=== PATIENT | female | born 1975 ===

== ENCOUNTER 2017-08-16 03:08 | Emergency (ER) | payer SELFPAY ==
[2017-08-16 03:25] VITALS: BP 137/86; PULSE 98; RESP 18; TEMP 98.4; O2SAT 99
--- NOTE | 2017-08-16 04:41 | ED PDOC ---
HPI: CCC, URI, Sore Throat <Sultan Umer - Last Filed: 08/16/17 06:18> <Suman Graham - Last Filed: 08/16/17 06:42> Time Seen by Provider: 08/16/17 03:42 Chief Complaint (Nursing): ENT Problem Additional Complaint(s): 41 yo IUP at 36.2 weeks GA presents to ED c/o sore throat, subjective fever and B/L eye discharge x 3 days associated with B/L ear pain (L>R) for 2 days. Denies cough, dyspnea, chest pain, dizziness or chills. Denies ctx, vaginal bleeding, or LOF. Reports +FM. Pt did not take any pain medications. ( Sultan Umer) Supervising Attending Note - Supervising Attending Note The Documented history was done by the: Physician Chrome Polisher, Attending Physician The documented physical exam was done by the: Physician Chrome Polisher, Attending Physician The documented procedures were done by the: Physician Chrome Polisher, Attending Physician - Attestation: I have personally seen and examined this patient.: Yes I have fully participated in the care of the patient.: Yes I have reviewed all pertinent clinical information, including history, physical exam and plan: Yes <Suman Graham - Last Filed: 08/16/17 06:42> Past Medical History - Medical History PMH: No Chronic Diseases - Surgical History Surgical History: No Surg Hx - Family History Family History: States: No Known Family Hx - Social History Current smoker - smoking cessation education provided: No Alcohol: None Drugs: Denies <Sultan Umer - Last Filed: 08/16/17 06:18> Reviewed: Historical Data, Nursing Documentation, Vital Signs <Suman Graham - Last Filed: 08/16/17 06:42> Vital Signs: Last Vital Signs Temp 98.4 F 08/16/17 03:23 Pulse 98 H 08/16/17 03:23 Resp 18 08/16/17 03:23 BP 137/86 08/16/17 03:23 Pulse Ox 99 08/16/17 06:23 - Home Medications Home Medications: Ambulatory Orders Medication Instructions Recorded Amoxicillin 875 mg PO BID #20 tablet 08/16/17 Tobramycin 0.3% [Tobramycin 5 Ml] 1 drop OU Q4 #1 bottle 08/16/17 - Allergies Allergies/Adverse Reactions: Allergies Allergy/AdvReac Type Severity Reaction Status Date / Time No Known Allergies Allergy Verified 08/16/17 03:23 Review of Systems Constitutional: Negative for: Chills Eyes: Positive for: Redness ENT: Positive for: Ear Pain. Negative for: Ear Discharge Cardiovascular: Negative for: Chest Pain, Palpitations Respiratory: Negative for: Cough, Shortness of Breath Gastrointestinal: Negative for: Nausea, Vomiting Genitourinary Female: Negative for: Dysuria, Vaginal Bleeding Neurological: Negative for: Dizziness <Sultan Umer - Last Filed: 08/16/17 06:18> ROS Statement: Except As Marked, All Systems Reviewed And Found Negative <Suman Graham - Last Filed: 08/16/17 06:42> Physical Exam - Physical Exam Appears: Positive for: Uncomfortable (and mild acute distress due to ear pain) Skin: Positive for: Normal Color Eye Exam: Positive for: EOMI, PERRL, Conjunctival injection (with yellow crusting discharge B/L( R>L)) ENT: Positive for: Pharyngeal Erythema, Tonsillar Exudate (No tonsillar swelling ) Neck: Positive for: Normal Cardiovascular/Chest: Positive for: Regular Rate, Rhythm. Negative for: Murmur Respiratory: Positive for: Normal Breath Sounds. Negative for: Crackles, Wheezing Gastrointestinal/Abdominal: Positive for: Bowel Sounds, Soft, Other (gravid abdomen) Neurologic/Psych: Positive for: Alert, Oriented <Sultan Umer - Last Filed: 08/16/17 06:18> - ECG O2 Sat by Pulse Oximetry: 99 <Sultan Umer - Last Filed: 08/16/17 06:18> <Suman Graham - Last Filed: 08/16/17 06:42> - Progress ED Course And Treament: Assessment: 41 yo IUP at 36.2 weeks GA presents for sore throat, ear pain and eye discharge for 3 days. Plan: Rapid strep Rapid influenza POC finger stick glucose Acetaminophen 650 mg po once Case d/w ED attending Dr. Graham Re-evaluation time: 6:00 am on 08/16/17 Pt reports ear pain has improved after taking tylenol and afebrile in the ED. Pt's rapid strep and rapid influenza were negative. Pt is clinically stable to discharge home. Pt is prescribed amoxicillin 875 mg PO BID x 10 days for AOM and tobramycin eye drops for bacterial conjunctivitis. Advised to take tylenol 650 mg OTC q6 hrs prn for pain. Pt was advised to f/u with PMD in 2-3 days. Pt is in agreement with the plan. Case d/w ED attending Dr. Graham. (Sultan Umer) Disposition <Sultan Umer - Last Filed: 08/16/17 06:18> - Patient ED Disposition Is Patient to be Admitted: No Doctor Will See Patient In The: Office Counseled Patient/Family Regarding: Studies Performed, Diagnosis, Need For Followup - Disposition Disposition: Routine/Home Disposition Time: 06:11 <Suman Graham - Last Filed: 08/16/17 06:42> - Clinical Impression Clinical Impression: Otitis media, Conjunctivitis, Tonsillitis - Disposition [facility]errals: [facility] [Outside] Condition: GOOD Additional Instructions: Take your medications as instructed. Take only tylenol for pain or fever. Follow up with your PCP in 2-3 days. Prescriptions: Amoxicillin 875 mg PO BID #20 tablet Tobramycin 0.3% [Tobramycin 5 Ml] 1 drop OU Q4 #1 bottle Instructions: Otitis Media (ED), Tonsillitis (ED), Conjunctivitis (ED) Print Language: YI
== END 2017-08-16 06:24 | disposition home or self-care (01) ==
LOC: H.ER 03:08
DX: O26.893 Other specified pregnancy related conditions, third trimester (principal); Z3A.36 36 weeks gestation of pregnancy; H10.9 Unspecified conjunctivitis; J03.90 Acute tonsillitis, unspecified; H66.90 Otitis media, unspecified, unspecified ear

== ENCOUNTER 2017-08-27 19:37 | Inpatient (IN) | payer MEDICAID, SELFPAY ==
[2017-08-27 21:53] VITALS: BMI 32.1
[2017-08-27] MEDS ORDERED: Lactated Ringer's 1,000 ML IV SCH (22:00)
[2017-08-27 23:06] VITALS: O2SAT 100
[2017-08-27 23:10] LABS: BASO % 0.2 % (0.0-2.0); EOS # 0.1 K/uL (0.0-0.7); EOS % 0.9 % (0.0-4.0); HEMOGLOBIN 12.6 g/dL (12.0-16.0); LYMPH # 2.3 K/uL (1.0-4.3); MEAN CELL VOLUME 88.6 fl (81.0-99.0); MEAN CORPUSCULAR HEMOGLOBIN 29.4 pg (27.0-31.0); MEAN CORPUSCULAR HGB CONC 33.2 g/dL (33.0-37.0); MEAN PLATELET VOLUME 10.4 fl (7.2-11.7); MONO # 0.4 K/uL (0.0-0.8); MONO % 4.3 % (0.0-10.0); NEUT # 6.5 K/uL (1.8-7.0); NEUT % 69.6 % (50.0-75.0); NRBC % 0.1 % (0.0-0.0); RBC 4.27 Mil/uL (3.80-5.20); RED CELL DISTRIBUTION WIDTH 14.3 % (11.5-14.5); WHITE BLOOD COUNT 9.4 K/uL (4.8-10.8)
[2017-08-28] MEDS: Lactated Ringer's 1,000 ML IV SCH ×2 (03:15→12:45)
[2017-08-28] MEDS ORDERED: Lidocaine 1% Inj (20ml) ONE (07:21)
[2017-08-29] MEDS: Lactated Ringer's 1,000 ML IV SCH ×3 (07:34→20:42)
--- NOTE | 2017-08-29 09:42 | OBPN ---
Datetime: 08/29/2017 09:39 IP Progress Impression: Reassuring heart rate IP Procedures: Sterile Vag Exam IP Progress Plan: Continue present management; Augmentation FHR - Baseline A Provider: 140s IP Progress Note Comment: Cervidil removed. Plan to start Pitocin augmentation. Discussed plan with the patient and all patient questions answered. Maternal well-being and well-being reassuring a t this time. Vital Signs Provider: Reviewed; Within Normal Limits NICHD Accel Fetus A IP Provider: [id number] FHR Category Provider Fetus A: Category I NICHD Variability Prov Fetus A: Moderate 6-25bpm Dilatation, Provider: 1 Effacement, Provider: long Station, Provider: high NICHD Decel Fetus A IP Provider: None Datetime: 08/27/2017 21:50 Pool Provider: Positive Nitrazine Provider: Positive Membranes, Provider: Ruptured Amniotic Fluid Color, Provider: Clear
[2017-08-29] MEDS ORDERED: Oxytocin 30 UNITS in Sodium Chloride 0.9% 500 ML IV ONE ×2 (09:45→10:24)
[2017-08-29] MEDS ORDERED: Dextrose 5%/0.9% NS 1,000 ML IV SCH (11:15)
[2017-08-29] MEDS ORDERED: Dextrose 5%/Lactated Ringer's 1,000 ML IV SCH (11:15)
[2017-08-29] MEDS ORDERED: ceFAZolin IV 2 gm in Dextrose 2 GM/50 ML BAG IVPB ONE ×2 (19:28→19:38)
[2017-08-29] MEDS ORDERED: Lactated Ringer's 2,000 ML IV SCH (19:45)
[2017-08-29] MEDS ORDERED: ePHEDrine 50 mg/ml Inj ONE (19:56)
[2017-08-29] MEDS ORDERED: Morphine 1 mg/ml preservative-free Inj(Duramorph) ONE (19:56)
[2017-08-29] MEDS ORDERED: Phenylephrine 10 mg/ml Inj ONE (19:56)
[2017-08-29] MEDS ORDERED: DiphenhydrAMINE 50 mg/ml Inj IVP PRN (21:43)
[2017-08-29] MEDS ORDERED: Oxycodone/Acetaminophen 5/325 mg Tab PO PRN ×2 (22:23)
[2017-08-30] MEDS ORDERED: Lactated Ringer's 1,000 ML IV SCH ×2 (06:45→12:32)
[2017-08-30 07:22] LABS: BASO % 0.3 % (0.0-2.0); EOS % 0.5 % (0.0-4.0); HEMOGLOBIN 10.3 g/dL (12.0-16.0); LYMPH # 1.7 K/uL (1.0-4.3); LYMPH % 18.9 % (20.0-40.0); MEAN CELL VOLUME 89.4 fl (81.0-99.0); MEAN CORPUSCULAR HEMOGLOBIN 29.6 pg (27.0-31.0); MEAN CORPUSCULAR HGB CONC 33.1 g/dL (33.0-37.0); MONO # 0.3 K/uL (0.0-0.8); MONO % 3.8 % (0.0-10.0); NEUT # 6.7 K/uL (1.8-7.0); NEUT % 76.5 % (50.0-75.0); NRBC % 0.1 % (0.0-0.0); RBC 3.47 Mil/uL (3.80-5.20); RED CELL DISTRIBUTION WIDTH 14.3 % (11.5-14.5); WHITE BLOOD COUNT 8.8 K/uL (4.8-10.8)
[2017-08-30 07:26] LABS: ALB/GLOB RATIO 0.8 (1.0-2.1); ALBUMIN 2.4 g/dL (3.5-5.0); ALT/SGPT 37 U/L (9-52); AST/SGOT 23 U/L (14-36); BLOOD UREA NITROGEN 7 mg/dl (7-17); CALCIUM 8.8 mg/dL (8.4-10.2); GFR AFRICAN-AMERICAN > 60; GFR NON-AFRICAN AMERICAN > 60
--- NOTE | 2017-08-30 09:09 | OBDS ---
DELIVERY PERSONNEL Delivery Doctor: Franki Lambert MD Programming Coordinator: Doe Steele RN Anesthesiologist: Leatha Rios MD Resident: Isidoro CLEMENTS MATERNAL INFORMATION Delivery Anesthesia: Spinal Medications in Delivery: Pitocin 20u/1000LR Estimated Blood Loss (ml): 800 Placenta Cultured: No Provider Comments: Refer to operative note LABOR SUMMARY EDC: 09/11/2017 00:00 No. Babies in Womb: 1 Attempted: No Labor Anesthesia: None LABOR INFORMATION Cervical Ripening Agents: Cervidil Oxytocin: Augmentation Group B Beta Strep: Negative Steroids Given: None Reason Steroids Not Administered: Not Applicable MEMBRANES Membranes Rupture Method: Spontaneous Rupture of Membranes: 08/27/2017 18:00 Length of Rupture (hrs): 51.57 STAGES OF LABOR Stage 3 hrs: 0 Stage 3 min: 1 CSECTION DELIVERY Primary Indication: Failed Induction CSection Urgency: Non Elective CSection Incidence: Primary Labor: No Labor CSection Incision: Lower Uterine Transverse Sterilization Procedure: [place] Uterine Closure: Double-layer closure BABY A INFORMATION Delivery Date/Time: 08/29/2017 21:34 Method of Delivery: Born in Route : No : N/A Forceps: N/A Vacuum Extraction: N/A Shoulder Dystocia : No SHOULDER DYSTOCIA BABY A Delivery Date/Time: 08/29/2017 21:34 PRESENTATION/POSITION BABY A Presentation: Cephalic PLACENTA INFORMATION BABY A Placenta Delivery Time : 08/29/2017 21:35 Placenta Method of Delivery: Manual Removal Placenta Status: Delivered SCORES BABY A Heart Rate 1 min: >100 bpm Resp Effort 1 min: Good Cry Reflex Irritability 1 min: Cough or Sneeze or Pulls Away Muscle Tone 1 min: Active Motion Color 1 min: Body [place], Extremities Blue SCORE 1 MIN: 9 Heart Rate 5 min: >100 bpm Resp Effort 5 min: Good Cry Reflex Irritability 5 min: Cough or Sneeze or Pulls Away Muscle Tone 5 min: Active Motion Color 5 min: Body [place], Extremities Blue SCORE 5 MIN: 9 INFORMATION BABY A Gestational Age at Delivery: 38.0 Gestational Status: Term Outcome : Liveborn Condition : Stable Sex: Female IDENTIFICATION/MEDS BABY A ID Band Number: [id number] ID Band Location: Left Leg; Left Arm WEIGHT/LENGTH BABY A Birthweight (gms): 3180 Weight (lb): 7 Infant Weight (oz): 0 CORD INFORMATION BABY A No. Cord Vessels: 2 Nuchal Cord : N/A Cord Blood Taken: Yes Suction: Mouth ASSESSMENT BABY A Infant Complications: None Physical Findings at Delivery: Within Normal Limits Respirations: Appears Normal [place] Pipe/ALS Called : No Care By: Transferred To: Nursery
--- NOTE | 2017-08-30 10:49 | OBPPN ---
Datetime: 08/30/2017 08:00 PP Pain Prov: Within normal limits PP Nausea Prov: Denies PP Flatus Prov: No PP BM Prov: No PP Breasts Prov: Not Done PP Heart Prov: Normal PP Lungs Prov: Normal PP Abdomen/Uterus Prov: Normal PP Lochia Prov: Normal PP Vulva/Perineum Prov: Not Done PP CVA Tenderness Prov: Normal PP Extremities Prov: Normal PP C/S Incision Prov: Not Applicable PP Comments Phys Exam Prov: Incision will be checked this afternoon when bandage is removed. PP Impression Prov: Normal progression PP Plan Prov: Continue present management PP Progress Note Prov: POD 1 S: 41 yo s/p on 08/2017. Pt. is seen and examined at bedside this AM. No overni ght events. Pt reports mild abdominal pain, but well controlled with pain meds. D/c jacobs at 18:00 wi th dressing removal as well. No nausea, advised to advance diet as tolerated. Breast feeding without difficulty. Lochia is similar to menses volume. No bowel movement or passin g gas per rectum. Denies fever/chills, diarrhea, nausea/vomiting, chest pain, dyspnea, and dizziness. O: VS: stable GEN: NAD Cardio: S1S2, no murmurs Lungs: clear breath sounds b/l, no wheezing Abdomen: BS+, tenderness to palpation. Incision scar to be examined with dressing removal this aft ernoon. Uterus is firm and at the level of the umbilicus. EXT: No edema, calves nontender NEURO/PSYCH: AAOx3, no grossly focal deficits, preserved affect and mood. Assessment/Plan: 41 yo s/p on 08/29/2017. Pt remains afebrile, tolerating pain w ith medication, doing well on POD#1. OOB with caution SCDs for DVT prophylaxis, encouraged ambulating Percocet 5/325mg, and Motrin 600mg for pain. Colace 100mg PO BID/Senokot 17.2 mg for constipation Encourage and ambulating f/u CBC post op, pending Anticipated d/c to home, 09/01/2017. Case dw OB attending --- Aman Carrera MD PGY-1 OB Hospitalist Addendum: Pt seen and examined by me. Agree w/ above. POD 1 s/p c/s for failed in duction of labor, doing well, breast and bottle feeding. Discontinue foly and OOB today. (ES) IP PP Procedures: None Vital Signs Provider PP: Reviewed; Within Normal Limits
[2017-08-30] MEDS: Simethicone 80 mg Chewtab PO SCH ×4 (11:38→21:22)
[2017-08-30] MEDS ORDERED: Oxycodone/Acetaminophen 5/325 mg Tab PO PRN (12:32)
[2017-08-30] MEDS ORDERED: DiphenhydrAMINE 50 mg/ml Inj IVP PRN (12:32)
[2017-08-30] MEDS: Oxycodone/Acetaminophen 5/325 mg Tab PO PRN ×2 (15:16→22:46)
--- NOTE | 2017-08-31 08:57 | OP ---
PROCEDURE DATE: 08/29/2017 PREOPERATIVE DIAGNOSES: Failed induction of labor, advanced maternal age, gestational diabetes, and premature ruptured membranes. POSTOPERATIVE DIAGNOSES: Failed induction of labor, advanced maternal age, gestational diabetes, and premature ruptured membranes. PROCEDURE: Primary low flap transverse Cesarian section via Pfannenstiel incision, bilateral tubal ligation in Ernesto fashion. SURGEON: Pepe Lambert MD LABORER GOLF COURSE: Dr. Chaudhyr. TYPE OF ANESTHESIA: Spinal. ANESTHESIA ADMINISTERED BY: Floyd Rios MD IV FLUID INTAKE: 1600 mL lactate ringers. ESTIMATED BLOOD LOSS: 800 mL. URINE OUTPUT: 200 mL of clear urine at the end of the procedure. COMPLICATIONS: None. DESCRIPTION OF PROCEDURE: The patient was taken to the operating room where spinal anesthesia was found to be adequate. The patient was prepped and draped in normal sterile fashion in the dorsal supine position with leftward tilt. A Pfannenstiel skin incision was made with a scalpel. This was carried down through to the underlying layer of fascia with the scalpel. Midline defect was made in the fascial layer with a scalpel. The fascial incision was then extended bilaterally sharply with curved Roa scissors. The fascial layer was from the underlying rectus muscles both bluntly and sharply with curved Roa scissors. The rectus muscles were at the midline. The peritoneum was then identified, tented up with Stephanie clamps x2, and entered sharply with Metzenbaum scissors. This peritoneal incision was then extended superiorly and inferiorly with good visualization of the urinary bladder. Bladder blade was inserted into the abdomen. The vesicouterine peritoneum was then identified, tented up with Stephanie clamps x2, and entered sharply with Metzenbaum scissors. This peritoneal incision was then extended bilaterally with Metzenbaum scissors. The bladder flap was created digitally. The Carlos retractors were placed over the urinary bladder. The uterus was incised with scalpel. The uterine incision was extended bilaterally with scissors. The infant's head was delivered atraumatically. Nose and mouth were suctioned with bulb suction. The remainder of the was delivered without complication. The cord was clamped and cut. The was handed off to awaiting ultrasound spec. Blood was collected. The placenta was removed manually. The uterus was cleared of all clots and debris. The uterine incision was repaired with 0 Vicryl in a running, locked fashion. A second layer of the same suture was used to imbricate the first and to obtain an excellent hemostasis. Reinspection of the uterine incision proved excellent hemostasis. Attention was then turned to the fallopian tubes bilaterally. The fallopian tubes were grasped with [place] forceps bilaterally, suture ligated in [place] fashion bilaterally, transected with the portion of the tube removed bilaterally, electrocauterized at surgical pedicles bilaterally. After tubal ligation, reinspection of both surgical pedicles appeared hemostasis. The abdomen and pelvis were irrigated with copious amounts of 4-0 normal saline. Reinspection of all surgical sites were found to be hemostatic. All instruments were removed from the patient. The peritoneal layer was closed with running stitch of 2-0 chromic. The rectus muscles were reapproximated with a running stitch of 2-0 chromic. The fascial layer was closed with a running stitch of 0 Vicryl. Subcutaneous tissue was closed with a running stitch of 3-0 plain. The skin was closed with can. The patient tolerated the procedure well. All sponge count, lap count, and needle counts were correct x2. The patient was given 2 g of Ancef just prior to the beginning of the procedure. There were no complications. The patient was taken to the recovery room in awake and stable condition. Pepe Lambert MD
[2017-08-31] MEDS: Oxycodone/Acetaminophen 5/325 mg Tab PO PRN ×3 (09:43→19:47)
[2017-08-31] MEDS: Simethicone 80 mg Chewtab PO SCH ×3 (09:44→22:34)
[2017-08-31] MEDS: Prenatal Multivit/Folic Acid/Iron Tab PO SCH (09:44)
--- NOTE | 2017-08-31 11:04 | OBPPN ---
Datetime: 08/31/2017 05:53 PP Pain Prov: Within normal limits PP Nausea Prov: Denies PP Flatus Prov: Yes PP BM Prov: No PP Breasts Prov: Normal PP Heart Prov: Normal PP Lungs Prov: Normal PP Abdomen/Uterus Prov: Normal PP Lochia Prov: Normal PP CVA Tenderness Prov: Normal PP Extremities Prov: Normal PP C/S Incision Prov: Normal PP Progress Prov: Normal PP Impression Prov: Normal progression PP Plan Prov: Continue present management PP Progress Note Prov: POD 2 S: 41 yo s/p on 08/2017 for failed induction of labor. Pt. was seen and examined at bedside this AM. No overnight events. Pt reports mild abdominal pain, but well controlled with pa in meds. Ambulating.Breast feeding without difficulty. Lochia is similar to menses volume. No BM, +ga s per rectum. Denies fever/chills, diarrhea, nausea/vomiting, chest pain, dyspnea, and dizziness. O: VS: stable GEN: NAD Cardio: S1S2, no murmurs Lungs: clear breath sounds b/l, no wheezing Abdomen: BS+, appropriate tenderness to palpation. Incision examined wnl. Uterus is firm and at th e level of the umbilicus. EXT: No edema, calves nontender NEURO/PSYCH: AAOx3, no grossly focal deficits, preserved affect and mood. Assessment/Plan: 41 yo s/p on 08/29/2017. Pt remains afebrile, tolerating pain w ith medication, doing well on POD#2. OOB with caution SCDs for DVT prophylaxis, encouraged ambulating Percocet 5/325mg, and Tylenol 650 po q4 for pain Colace 100mg PO BID Encourage and ambulating f/u CBC post op, pending Anticipated d/c to home, 09/01/2017. Case dw OB attending, Dr. Jason Cavazos, PGY1 Addendum by Dr. Chinchilla: Patient evaluated independently and I agree with the above IP PP Procedures: None Vital Signs Provider PP: Reviewed; Within Normal Limits
--- NOTE | 2017-08-31 16:20 | CP.PCM.PCO ---
Physician Communication Note - Physician Communication Note Physician Communication Note: pt seen and recovering appropriately s/p , F healthy
[2017-09-01] MEDS: Oxycodone/Acetaminophen 5/325 mg Tab PO PRN (04:56)
[2017-09-01] MEDS: Simethicone 80 mg Chewtab PO SCH ×2 (04:58→09:01)
[2017-09-01] MEDS: Prenatal Multivit/Folic Acid/Iron Tab PO SCH (09:01)
--- NOTE | 2017-09-01 10:18 | OBPPN ---
Datetime: 09/01/2017 06:11 PP Pain Prov: Within normal limits PP Nausea Prov: Denies PP Flatus Prov: Yes PP BM Prov: No PP Breasts Prov: Not Done PP Heart Prov: Normal PP Lungs Prov: Normal PP Abdomen/Uterus Prov: Normal PP Lochia Prov: Normal PP Vulva/Perineum Prov: Not Done PP CVA Tenderness Prov: Not Done PP Extremities Prov: Normal PP C/S Incision Prov: Normal PP Progress Prov: Normal PP Impression Prov: Normal progression PP Plan Prov: Continue present management; Discharge PP Progress Note Prov: POD 3 S: 41 yo s/p with BTL on 08/2017 for failed induction of labor. Pt. was seen and examined at bedside this AM. No overnight events. Pt reports mild abdominal pain, but well controlle d with pain meds. Ambulating without dizziness/ lightheadedness/palpatations. without difficulties. Supplementing with formula. Lochia is similar to menses volume. No BM, +gas per rectum. Denies fever/chills, diarrhea, nausea/vomiting, chest pain, dyspnea, and dizziness. O: VS: stable GEN: NAD Cardio: S1S2, no murmurs Lungs: clear breath sounds b/l, no wheezing Abdomen: BS+, appropriate tenderness to palpation. Incision examined wnl. Uterus is firm and at th e level of the umbilicus. EXT: No edema, calves nontender NEURO/PSYCH: AAOx3, no grossly focal deficits, preserved affect and mood. Assessment/Plan: 41 yo s/p with BTL on 08/29/2017. Pt remains afebrile, tolerati ng pain with medication, doing well on POD#3.Post-op H/H: 10.3/31. Pt has no anemia symptoms. OOB wit h caution. Anticipating a safe discharge today. Contraception= BTL SCDs for DVT prophylaxis, encouraged ambulating Percocet 5/325mg, and Tylenol 650 po q4 for pain Colace 100mg PO BID Encourage and ambulating Discussed with OB Attending Whit Cavazos, PGY1 OB Hospitaliston-call : on Rounds this morning, I saw and examined this patient. Agree with PGY1 note. OGSIA GAO PP Procedures: None Vital Signs Provider PP: Reviewed; Within Normal Limits
--- NOTE | 2017-09-01 10:21 | OBDCSUM ---
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 Disch Instr Activity: Normal activity; May be up to bathroom; May be up for meals; May Shower Disch Instr Diet: Regular Discharge Instructions, Provider: Routine instructions given Discharge Diagnosis, Provider: Term Delivered Discharge Time: 09/01/2017 12:00 Follow up in weeks, Provider: 1-2 weeks Disch Referrals: None Contraception discussed, Prov: Yes Disch Activity Restrictions: No exercising; No lifting; Minimize stair-climbing; No sexual activity; Nothing in vagina - [place], tampons, douche Discharge Comment, Provider: Discharge Date: 09/02 41 yo s/p with BTL on 08/2017 at 38 weeks gestations for failed induction of lab or. NB: Female, weight 3180g, 9/9 complications: None summary: No complications. Incision intact with can in place, clean and dry. Lochia <menses. Post H/H: 10.3, no symptoms of anemia. Discharge instructions: 1.Encourage 2.PNV 1 tablet daily 3.Tylenol 650mg 1 tab po prn for mild-mod pain 4.Percocet 5/325 mg 1 tab po prn q6h for severe pain 5.Ambulatory with caution, nothing per vagina, no heavy lifting, avoid stairs 6. ER precautions: If excessive bleeding or fever without relief from Tylenol go to ED 7.F/U within 1-2 weeks Stable for discharge today. Discussed with OB Attending Moira PGY1 OB Hospitalist on-call : on Rounds this morning, I saw and examined this patient. Agree with PGY1 note. MAHNDO Contraception after Delivery: Tubal Ligation
[2017-09-01 18:22] VITALS: BP 118/76; PULSE 76; RESP 20; TEMP 98.4
== END 2017-09-01 14:15 | disposition home or self-care (01) | DRG 766 ==
LOC: H.EROB2 19:37 → H.L&D 21:54 → H.OB/GYN 08-30 15:56
PROVIDERS: ADMIT Obstetrics & Gynecology; ATTEND Obstetrics & Gynecology
PROC: 4A1HXCZ Monitoring of Products of Conception, Cardiac Rate, External Approach (ICD-10-PCS; 2017-08-27)
PROC: 3E0P7VZ Introduction of Hormone into Female Reproductive, Via Natural or Artificial Opening (ICD-10-PCS; 2017-08-28)
PROC: 10D00Z1 Extraction of Products of Conception, Low, Open Approach (ICD-10-PCS; principal; 2017-08-29)
PROC: 0UB70ZZ Excision of Bilateral Fallopian Tubes, Open Approach (ICD-10-PCS; 2017-08-29)
DX: O42.92 Full-term premature rupture of membranes, unspecified as to length of time between rupture and onset of labor (principal); O24.429 Gestational diabetes mellitus in childbirth, unspecified control; O61.0 Failed medical induction of labor; O09.523 Supervision of elderly multigravida, third trimester; Z37.0 Single live birth; Z3A.38 38 weeks gestation of pregnancy; Z30.2 Encounter for sterilization